=== PATIENT | male | born 1990 | race Caucasian/White ===

== ENCOUNTER 2016-12-25 03:51 | Inpatient (IN) | payer MEDICAID, OTHER ==
[~2016-12-25] VITALS: Ht 165.1 cm; Wt 90.2 kg
[2016-12-25 04:34] VITALS: TEMP 98.4
[2016-12-25] MEDS ORDERED: morphine 4 MG/ML VIAL IV STA ×2 (04:36→06:36)
[2016-12-25] MEDS ORDERED: ONDANSETRON 4 MG INJ IV STA (04:36)
[2016-12-25] MEDS ORDERED: SOD CHLORIDE 0.9% 1,000 ML IV STA ×2 (04:36→06:31)
[2016-12-25 05:13] LABS: ADD SCAN DIFF NO
[2016-12-25 05:20] LABS: BASOPHILS % 0.2 % (0.0-2.0); EOSINOPHILS # 0.9 10^3/ul (0.0-0.5); EOSINOPHILS % 6.9 % (0.0-7.0); HEMATOCRIT 44.4 % (42.0-52.0); HEMOGLOBIN 15.1 g/dl (14.0-18.0); LYMPHOCYTES # 1.5 10^3/ul (0.8-2.9); LYMPHOCYTES % 11.2 % (15.0-51.0); MEAN CORPUSCULAR HEMOGLOBIN 31.1 pg (29.0-33.0); MEAN CORPUSCULAR VOLUME 91.4 fl (82.0-101.0); MEAN PLATELET VOLUME 10.4 fl (7.4-10.4); MONOCYTE # 0.6 10^3/ul (0.3-0.9); MONOCYTES % 4.9 % (0.0-11.0); NEUTROPHIL # 10.1 10^3/ul (1.6-7.5); NEUTROPHILS % 76.3 % (39.0-77.0); PLATELET COUNT 299 10^3/UL (140-415); RED BLOOD COUNT 4.86 10^6/ul (4.70-6.10); WHITE BLOOD COUNT 13.2 10^3/ul (4.8-10.8)
[2016-12-25] MEDS ORDERED: LIDOCAINE/MYLANTA 40 ML BTL PO ONE (05:30)
[2016-12-25 05:32] LABS: ALBUMIN 4.6 g/dl (3.3-4.9)
[2016-12-25 05:33] LABS: POTASSIUM 3.7 mmol/L (3.5-5.1)
[2016-12-25 05:35] LABS: ALBUMIN/GLOBULIN RATIO 1.09; BILIRUBIN,INDIRECT 0.9 mg/dl (0-1.1); BILIRUBIN,TOTAL 0.9 mg/dl (0.2-1.3); CREATININE 1.06 mg/dl (0.61-1.24); TOTAL PROTEIN 8.8 g/dl (6.1-8.1)
--- NOTE | 2016-12-25 05:35 | ERD ---
ER Documentation Chief Complaint Date/Time DATE: 12/25/16 TIME: 05:34 Chief Complaint C/O EPIGASTRIC PAIN X1 1 DAY, WITH NAUSEA HPI This is a 26-year-old male comes with epigastric pain for 1 day with associated nausea. Pain is mild to moderate in intensity, burning in sensation and radiates to his back. Happened. Takeout food. No fevers no chills. Mild nausea. No vomiting. No other current complaints ROS All systems reviewed and are negative except as per history of present illness. Medications Home Meds No Active Prescriptions or Reported Meds Allergies Allergies: Coded Allergies: No Known Allergy (Unverified , 12/12/11) PMhx/Soc History of Surgery: No (NO MEDICAL OR SURGICAL HX) Anesthesia Reaction: No Hx Neurological Disorder: No Hx Respiratory Disorders: No Hx Cardiac Disorders: No Hx Psychiatric Problems: No Hx Miscellaneous Medical Probl: No Hx Alcohol Use: Yes Hx Substance Use: No Hx Tobacco Use: No Smoking Status: Never smoker Physical Exam Vitals Vital Signs Date Time Temp Pulse Resp B/P Pulse Ox O2 Delivery O2 Flow Rate FiO2 12/25/16 04:34 98.4 76 20 161/113 99 Room Air 12/25/16 04:13 98.5 80 20 173/108 98 Physical Exam Const: [] Head: Atraumatic Eyes: Normal Conjunctiva ENT: Normal External Ears, Nose and Mouth. Neck: Full range of motion..~ No meningismus. Resp: Clear to auscultation bilaterally Cardio: Regular rate and rhythm, no murmurs Abd: Soft, non tender, non distended. Normal bowel sounds Skin: No petechiae or rashes Back: No midline or flank tenderness Ext: No cyanosis, or edema Neur: Awake and alert Psych: Normal Mood and Affect Result Diagram: 12/25/16 0446 Results 24 hrs Laboratory Tests Test 12/25/16 04:46 White Blood Count 13.210^3/ul Red Blood Count 4.8610^6/ul Hemoglobin 15.1g/dl Hematocrit 44.4% Mean Corpuscular Volume 91.4fl Mean Corpuscular Hemoglobin 31.1pg Mean Corpuscular Hemoglobin Concent 34.0g/dl Red Cell Distribution Width 12.0% Platelet Count 11828^3/UL Mean Platelet Volume 10.4fl Neutrophils % 76.3% Lymphocytes % 11.2% Monocytes % 4.9% Eosinophils % 6.9% Basophils % 0.2% Nucleated Red Blood Cells % 0.0/100WBC Neutrophils # 10.110^3/ul Lymphocytes # 1.510^3/ul Monocytes # 0.610^3/ul Eosinophils # 0.910^3/ul Basophils # 0.010^3/ul Nucleated Red Blood Cells # 0.010^3/ul Current Medications Medications (Trade) Dose Ordered Sig/Betty Route PRN Reason Start Time Stop Time Status Last Admin Dose Admin Sodium Chloride (NS) 1,000 ml @ 1,000 mls/hr Q1H STAT IV 12/25/16 04:36 12/25/16 05:35 12/25/16 04:48 Morphine Sulfate (morphine) 4 mg ONCE STAT IV 12/25/16 04:36 12/25/16 04:40 DC 12/25/16 04:48 Ondansetron HCl (Zofran Inj) 4 mg ONCE STAT IV 12/25/16 04:36 12/25/16 04:40 DC 12/25/16 04:48 Miscellaneous Medication (Gi Cocktail (2)) 40 ml ONCE ONCE PO 12/25/16 05:30 12/25/16 05:31 DC 12/25/16 05:33 Procedures/MDM CT of abdomen pelvis is currently pending. Medical decision makin-year-old with acute abdominal pain. Bulges consistent with gastroenteritis. Patient was discharged home with Zofran and Bentyl pending CT scan results. Departure Diagnosis: Primary Impression: Abdominal pain Abdominal location: epigastric Qualified Code: R10.13 - Epigastric pain Condition: Stable VERONIKA TINSLEY Dec 25, 2016 05:35
[2016-12-25] MEDS ORDERED: RANI150T9 PO (05:39)
[2016-12-25] MEDS ORDERED: ONDA4TAB14 PO (05:39)
[2016-12-25] MEDS ORDERED: SOD CHLORIDE 0.9% 100 ML ONE (05:50)
[2016-12-25] MEDS ORDERED: IOHEXOL 300MG/ML 150 ML BTL ONE (05:50)
[2016-12-25 06:10] LABS: ADD UMIC NO; URINE BILIRUBIN (Dip) NEGATIVE (NEGATIVE); URINE BLOOD (Dip) NEGATIVE (NEGATIVE); URINE COLOR LT. YELLOW (YELLOW); URINE GLUCOSE (Dip) NEGATIVE (NEGATIVE); URINE KETONES (Dip) NEGATIVE (NEGATIVE); URINE LEUKOCYTE ESTERASE (Dip) NEGATIVE (NEGATIVE); URINE NITRITE (Dip) NEGATIVE (NEGATIVE); URINE TOTAL PROTEIN (Dip) NEGATIVE (NEGATIVE); URINE UROBILINOGEN (Dip) 0.2 E.U./dL (0.1-1.0)
--- NOTE | 2016-12-25 06:25 | RADRPT ---
PROCEDURE: CT ABDOMEN/PELVIS WITH CONTRAST CLINICAL INDICATION: 26-year-old male with abdominal pain. TECHNIQUE: The study was performed utilizing a GE [employer] VCT 64-slice CT scanner. Direct axia l sections were obtained through the abdomen and pelvis with the use of 100 cc of Omnipaque-300 francis onic intravenous contrast material. Sagittal and coronal reformations were obtained. One or more of the following dose reduction techniques were utilized: automated exposure control, adjustment of the mA and/or kV according to patient's size or use of iterative reconstruction technique. The images were reviewed on a PACS workstation. CTD/vol = 19.4 mGy; Total Exam DLP = 1285.0 mGy-cm. COMPARISON: None. FINDINGS: There is trace bibasilar subsegmental atelectasis. There is no evidence for significant pleural eff usion. The liver has a normal size and contour. There is diffuse decreased density throughout the liver consistent with fatty infiltration without focal areas of abnormal density or contrast enhance ment. No intrahepatic nor extrahepatic biliary ductal dilatation is seen. The gallbladder is without calcified stones however significant wall thickening. The pancreatic head and uncinate process diff usely edematous with peripancreatic inflammatory changes and mild free fluid consistent with acute p ancreatitis This spleen is identified and has a normal size without abnormal density or contrast enh ancement. The adrenal glands are unremarkable. The kidneys are functional bilaterally. There is a r ight lower pole renal cyst measuring approximately 10 x 10 x 10 mm. No hydroureteronephrosis nor nep hroureterolithiasis is evident. The urinary bladder contains urine. There is umbilical hernia with an opening of 12 x 12 mm containing omental fat. The duodenum is mildly dilated consistent with a s entinel loop. The appendix is visualized and is without edema or surrounding inflammatory reaction. The prostate is not enlarged. There is no significant pelvic free fluid. There are small bilateral inguinal hernias containing fat. The aortoiliac vessels are without aneurysmal dilatation. The osse ous structures are intact. IMPRESSION: 1. Diffuse fatty infiltration of the liver. 2. Acute pancreatitis predominantly involving the head and uncinate process. 3. Right lower pole renal cyst. 4. Umbilical hernia containing omental fat. 5. Small bilateral inguinal hernias containing fat. .Radu Montenegro MD, MD Date Time Electronically viewed and signed by .Radu Montenegro MD, MD on 12/25/2016 06:25 .M/
--- NOTE | 2016-12-25 06:55 | QN ---
Documentation Comment Patient was found to have an elevated lipase of over [address] scan which showed acute pancreatitis. The patient admits to drinking heavily this weekend and I believe the pancreatitis is likely related to alcohol use. Ultrasound has been ordered to rule out gallstones. I spoke with Dr. Leone from the panel team for admission to a medical surgical bed. RICHA VANG MD Dec 25, 2016 06:55
[2016-12-25] MEDS ORDERED: ONDANSETRON 4 MG INJ IV PRN ×2 (07:00→09:00)
[2016-12-25] MEDS ORDERED: ACETAMINOPHEN 325 MG TAB PO PRN (07:00)
[2016-12-25] MEDS ORDERED: AMPICILLIN/SULB 3 GM/NS (PMX) 100 ML IVPB ONE (07:00)
--- NOTE | 2016-12-25 07:52 | RADRPT ---
PROCEDURE: Right Upper Quadrant Ultrasound. CLINICAL INDICATION: upper abd pain TECHNIQUE: Multiple real-time images were acquired of the patient's right upper quadrant abdomen a nd retroperitoneum utilizing a high resolution transducer. COMPARISON: None FINDINGS: The liver measures 18.4 cm, and demonstrates diffusely increased echogenicity. The main portal vein is not visualized due to overlying bowel gas. There is no intrahepatic biliary ductal dilatation. Th e extrahepatic common bile duct measures 4 mm. The gallbladder is without stones, wall thickening, or pericholecystic fluid. The visualized pancreas is unremarkable. The right kidney measures 10.0 x 4.2 x 4.2 cm and demonstrates normal echotexture. There is no right renal calculus or hydronephrosis. The visualized abdominal aorta and IVC are grossly unremarkable. IMPRESSION: Hepatomegaly with severe fatty infiltration. No cholelithiasis or acute cholecystitis. Normal CBD. The main portal vein is not visualized due to overlying bowel gas. RPTAT: EE Physician Ethel Date Time Electronically viewed and signed by Physician Ethel on 12/25/2016 07:52 /
[2016-12-25] MEDS ORDERED: DEXTROSE 5%-0.45% NACL 1,000 ML IV SCH (08:44)
[2016-12-25 09:00] VITALS: BP 168/108; PULSE 88; RESP 16
[2016-12-25] MEDS ORDERED: NACL 0.9% 3 ML SYG IV SCH (09:00)
[2016-12-25] MEDS: morphine 2 MG INJ IV PRN ×3 (09:22→19:09)
[2016-12-25 12:07] VITALS: BP 154/97; PULSE 62
[2016-12-25 14:38] VITALS: Ht 165.1 cm; Wt 90.2 kg
[2016-12-25] MEDS ORDERED: ONDANSETRON (ODT) 4 MG TAB ODT PRN (15:00)
[2016-12-25] MEDS ORDERED: LORAZEPAM 2 MG INJ IV PRN (15:00)
[2016-12-25] MEDS ORDERED: RANITIDINE 150 MG TAB PO PRN (15:00)
--- NOTE | 2016-12-25 15:31 | HP ---
DATE OF ADMISSION: 12/25/2016 AUDITOR TAX: None. CHIEF COMPLAINT: Abdominal pain. HISTORY OF PRESENT ILLNESS: This is a pleasant 26-year-old gentleman with past medical history of a lcohol dependency who has been drinking since age 16, who has been through binge drinking this weeke . He usually drinks 3 big cans of beer per day, although this weekend he drank a little more than his usual. He woke up with a hangover this past Saturday and he continued to drink to get rid of the hangover. He started having abdominal discomfort on 12/24/2016 and he had decreased appetite; ther efore, he presented to [facility] Emergency Room where he was found to have a lipase of [address] of the abdomen and pelvis was positive for diffuse fatty infiltration of the liver, acute panc reatitis predominantly involving the head of the uncinate process, right lower lobe renal cysts, umb ilical hernia containing omental fat, small bilateral inguinal hernias containing fat. The patient was made n.p.o., IV fluids, pain medication, antiemetic medication and he has been admitted to medic al/surgery for further evaluation and treatment. At this time, the patient denies having any chest pain, shortness of breath. No nausea, vomiting, diarrhea. No headache, dizziness, lightheadedness. No change in visual acuity, diplopia, photophobia. Positive for minimal abdominal discomfort. No respiratory distress. No heat and cold intolerance. No neck pain, no restricted range of motion i n upper and lower extremities or any other discomfort. PAST MEDICAL AND SURGICAL HISTORY: History of alcoholism. MEDICATIONS: 1. Zofran. 2. Ranitidine. ALLERGIES: NO KNOWN DRUG ALLERGIES. FAMILY HISTORY: Noncontributory. SOCIAL HISTORY: History of alcoholism, 3 big cans of beer per day. No smoking, no illicit drugs. He lives at home with his and 2 of his daughters. REVIEW OF SYSTEMS: As above per HPI, otherwise 12 review of systems has been found to be negative. PHYSICAL EXAMINATION: VITAL SIGNS: Temperature 98.9, pulse 62, blood pressure 158/97, oxygen saturation 95% on room air. GENERAL APPEARANCE: The patient is lying in bed comfortably without acute distress. He is awake, a lert, oriented. He is able to answer my questions properly. EYES AND ENT: Conjunctivae and lids are normal. Pupils are normal. Extraocular normal. Hearing g rossly normal. Lips, teeth and gums are normal. Oral mucosa is moist. NECK: Supple. Trachea is midline. No lymphadenopathy. RESPIRATORY: Effort is normal. Clear to auscultation bilaterally. CARDIOVASCULAR: Normal S1, S2. Regular rhythm and rate. No murmur, no bruits, no edema. Peripher al pulses, radial pulses palpable. Capillary refill is normal. CHEST: Normal expansion of thorax during inspiration. GASTROINTESTINAL: Abdomen is soft, nontender, not distended. Bowel sounds present. No guarding, n o rebound. GENITOURINARY: Deferred. MUSCULOSKELETAL: Upper and lower extremities within normal limits. Full range of motion, strength 5/5 in both upper and lower extremities. NEUROLOGIC: Cranial nerves II through XII are grossly intact. PSYCHIATRIC: Normal judgment and insight. Alert and oriented x3. Mood and affect is normal. LABORATORY WORK AND IMAGING: WBC 13.3, hemoglobin 15.1, hematocrit 44.4, platelets 299. Sodium 140 , potassium 3.7, chloride 100, bicarbonate 26, BUN 13, creatinine 1.06, glucose 105, calcium 9. Tot al bilirubin 0.9, AST 61, ALT 97, alkaline phosphatase 108. Protein 8.8. Lipase 889. ASSESSMENT AND PLAN: 1. Acute alcoholic pancreatitis with recent binge drinking. The patient has been placed n.p.o., I V fluid with banana bag, Ativan and Librium. Education was provided 2. Fatty liver, likely secondary to history of alcoholism. The patient has been instructed to quit alcohol consumption. 3. For deep venous thrombosis prophylaxis, on sequential compression devices. 4. For gastrointestinal prophylaxis, on ranitidine. 5. We will continue to monitor the patient closely. Further recommendations, management and treatm ent as per clinical course. Dictated By: DINORAH FLOREZ/LAURA Conf#: [id number] DID#: [id number]
[2016-12-25 20:42] VITALS: BP 173/96; RESP 16
[2016-12-25] MEDS: hydrALAzine 20 MG INJ IV PRN (20:54)
[2016-12-25] MEDS: CHLORDIAZEPOXIDE 25 MG CAP PO SCH (20:55)
[2016-12-25] MEDS: KETOROLAC 15 MG INJ IV PRN (20:55)
[2016-12-25 22:21] VITALS: BP 133/85
[2016-12-26] MEDS: morphine 2 MG INJ IV PRN ×3 (00:12→19:57)
[2016-12-26] MEDS: KETOROLAC 15 MG INJ IV PRN ×3 (05:17→17:49)
[2016-12-26 05:25] LABS: ADD SCAN DIFF NO
[2016-12-26 05:29] LABS: BASOPHILS % 0.2 % (0.0-2.0); EOSINOPHILS # 0.5 10^3/ul (0.0-0.5); HEMATOCRIT 44.7 % (42.0-52.0); HEMOGLOBIN 14.9 g/dl (14.0-18.0); LYMPHOCYTES # 1.3 10^3/ul (0.8-2.9); LYMPHOCYTES % 11.2 % (15.0-51.0); MEAN CORPUSCULAR HEMOGLOBIN 30.3 pg (29.0-33.0); MEAN CORPUSCULAR HGB CONC 33.3 g/dl (32.0-37.0); MEAN CORPUSCULAR VOLUME 90.9 fl (82.0-101.0); MEAN PLATELET VOLUME 10.1 fl (7.4-10.4); MONOCYTE # 0.6 10^3/ul (0.3-0.9); MONOCYTES % 5.3 % (0.0-11.0); NEUTROPHIL # 8.9 10^3/ul (1.6-7.5); NEUTROPHILS % 78.7 % (39.0-77.0); PLATELET COUNT 271 10^3/UL (140-415); RED BLOOD COUNT 4.92 10^6/ul (4.70-6.10); RED CELL DISTRIBUTION WIDTH 12.1 % (11.5-14.5); WHITE BLOOD COUNT 11.3 10^3/ul (4.8-10.8)
[2016-12-26 06:02] LABS: ALBUMIN 4.2 g/dl (3.3-4.9)
[2016-12-26 06:03] LABS: POTASSIUM 3.7 mmol/L (3.5-5.1)
[2016-12-26 06:05] LABS: BILIRUBIN,INDIRECT 0.7 mg/dl (0-1.1); BILIRUBIN,TOTAL 0.7 mg/dl (0.2-1.3); CREATININE 0.93 mg/dl (0.61-1.24)
[2016-12-26 06:06] LABS: ALBUMIN/GLOBULIN RATIO 1.07; CALCIUM 8.8 mg/dl (8.4-10.2); PHOSPHORUS 3.3 mg/dl (2.5-4.9); TOTAL PROTEIN 8.1 g/dl (6.1-8.1)
[2016-12-26 06:07] LABS: CHOL/HDL RATIO 3.9 RATIO
[2016-12-26 07:50] VITALS: BP 151/84; RESP 16
[2016-12-26] MEDS: CHLORDIAZEPOXIDE 25 MG CAP PO SCH ×3 (08:40→20:00)
[2016-12-26] MEDS: MULTIVITAMINS 10 ML, THIAMINE 100 MG, FOLIC ACID 1 MG in SOD CHLORIDE 0.9% 1,000 ML IVPB SCH (08:40)
[2016-12-26 12:00] VITALS: BP 135/79
--- NOTE | 2016-12-26 15:10 | PN ---
Date/Time of Note Date/Time of Note DATE: 12/26/16 TIME: 15:06 Assessment/Plan VTE Prophylaxis VTE Prophylaxis Intervention: SCD's Lines/Catheters IV [facility] Saline Lock Urinary Cath still in place: No Assessment/Plan Chief Complaint/Hosp Course ASSESSMENT AND PLAN: 1. Acute alcoholic pancreatitis Continue n.p.o., IV fluid with banana bag, Ativan and Librium. Education was provided Consultation was recommended Follow-up lipase level 2. Fatty liver, likely secondary to history of alcoholism. The patient has been instructed to quit alcohol consumption. 3. For deep venous thrombosis prophylaxis, on sequential compression devices. 4. For gastrointestinal prophylaxis, on ranitidine. We will continue to monitor the patient closely. Further recommendations, management and treatment as per clinical course. Problems: Subjective 24 Hr Interval Summary Free Text/Dictation Patient denies of any chest pain or nausea vomiting No abdominal pain No shortness of breath N.p.o. Exam/Review of Systems Vital Signs Vitals Vital Signs Date Time Temp Pulse Resp B/P Pulse Ox O2 Delivery O2 Flow Rate FiO2 12/26/16 07:50 98.9 108 16 151/84 93 12/25/16 09:00 Room Air Intake and Output 12/25/16 12/25/16 12/26/16 15:00 23:00 07:00 Intake Total 700 ml Output Total 800 ml Balance -100 ml Exam General: The patient is well-developed, Not in acute distress. HEENT: Atraumatic, normocephalic. The pupils are equal and round . Neck: Supple with full range of motion. Chest: Normal expansion of the thorax during inspiration Lungs: Clear to auscultation bilaterally Heart: Normal S1-S2, Regular rhythm and rate. Abdomen: Soft , nontender, nondistended , bowel sounds are present. Extremities: Normal to inspection, no edema no cyanosis Neurologic: Normal mental status,The patient is awake, alert and oriented . Results Result Diagram: 12/26/16 0505 12/26/16 0505 Results 24 hrs Laboratory Tests Test 12/26/16 05:05 White Blood Count 11.3 H Red Blood Count 4.92 Hemoglobin 14.9 Hematocrit 44.7 Mean Corpuscular Volume 90.9 Mean Corpuscular Hemoglobin 30.3 Mean Corpuscular Hemoglobin Concent 33.3 Red Cell Distribution Width 12.1 Platelet Count 271 Mean Platelet Volume 10.1 Neutrophils % 78.7 H Lymphocytes % 11.2 L Monocytes % 5.3 Eosinophils % 4.0 Basophils % 0.2 Nucleated Red Blood Cells % 0.0 Neutrophils # 8.9 H Lymphocytes # 1.3 Monocytes # 0.6 Eosinophils # 0.5 Basophils # 0.0 Nucleated Red Blood Cells # 0.0 Sodium Level 137 Potassium Level 3.7 Chloride Level 100 Carbon Dioxide Level 25 Anion Gap 16 Blood Urea Nitrogen 9 Creatinine 0.93 Glucose Level 103 Calcium Level 8.8 Phosphorus Level 3.3 Magnesium Level 2.0 Total Bilirubin 0.7 Direct Bilirubin 0.00 Indirect Bilirubin 0.7 Aspartate Amino Transf (AST/SGOT) 45 Alanine Aminotransferase (ALT/SGPT) 76 H Alkaline Phosphatase 100 Total Protein 8.1 Albumin 4.2 Globulin 3.90 H Albumin/Globulin Ratio 1.07 Triglycerides Level 222 H Cholesterol Level 165 LDL Cholesterol, Calculated 79 HDL Cholesterol 42 Cholesterol/HDL Ratio 3.9 Lipase 2321 H Medications Medications Current Medications Ondansetron HCl (Zofran Inj) 4 mg Q6H PRN IV NAUSEA AND/OR VOMITING Last administered on 12/26/16 08:40; Admin Dose 4 MG; Start 12/25/16 at 09:00 Morphine Sulfate (morphine) 3 mg Q4H PRN IV pain Last administered on 00:12; Admin Dose 3 MG; Start 12/25/16 at 09:00 Ketorolac Tromethamine (Toradol) 15 mg Q6H PRN IV PAIN Last administered on 12:03; Admin Dose 15 MG; Start 12/25/16 at 09:00; Stop 12/28/16 at 08:59 Hydralazine HCl 10 mg 10 mg Q4H PRN IV ELEVATED BLOOD PRESSURE Last administered on 12/25/16 20:54; Admin Dose 10 MG; Start 12/25/16 at 11:30 Multivitamins/ Thiamine HCl/ Folic Acid/Sodium Chloride (Mvi Adult/ Vitamin B1/ Folic Acid/NS) 1,011.2 ml @ 125 mls/ hr DAILY@09 IVPB Last administered on 08:40; Admin Dose 100 MLS/HR; Start 12/26/16 at 09:00 Lorazepam (Ativan) 0.5 mg Q6H PRN IV AGITATION/ANXIETY; Start 12/25/16 at 15:00 Chlordiazepoxide (Librium) 25 mg TID PO Last administered on 12/26/16t 12:03; Admin Dose 25 MG; Start 12/25/16 at 21:00 Ondansetron HCl (Zofran Odt) 4 mg Q6H PRN ODT NAUSEA AND/OR VOMITING; Start at 15:00 Ranitidine HCl (Zantac) 150 mg BID PRN PO EPIGASTRIC PAIN; Start 12/25/16 at 15 :00 DINORAH SHEPARD MD Dec 26, 2016 15:10
[2016-12-26 21:35] VITALS: BP 146/93; RESP 18
[2016-12-27] MEDS: morphine 2 MG INJ IV PRN ×5 (00:01→21:15)
[2016-12-27] MEDS: KETOROLAC 15 MG INJ IV PRN ×4 (01:16→20:04)
[2016-12-27 05:50] LABS: ADD SCAN DIFF NO
[2016-12-27 05:58] LABS: BASOPHILS % 0.3 % (0.0-2.0); EOSINOPHILS # 0.7 10^3/ul (0.0-0.5); EOSINOPHILS % 7.2 % (0.0-7.0); HEMATOCRIT 42.4 % (42.0-52.0); LYMPHOCYTES % 20.1 % (15.0-51.0); MEAN CORPUSCULAR HEMOGLOBIN 30.6 pg (29.0-33.0); MEAN CORPUSCULAR VOLUME 92.8 fl (82.0-101.0); MEAN PLATELET VOLUME 10.2 fl (7.4-10.4); MONOCYTE # 0.6 10^3/ul (0.3-0.9); NEUTROPHIL # 6.4 10^3/ul (1.6-7.5); NEUTROPHILS % 65.8 % (39.0-77.0); PLATELET COUNT 245 10^3/UL (140-415); RED BLOOD COUNT 4.57 10^6/ul (4.70-6.10); WHITE BLOOD COUNT 9.7 10^3/ul (4.8-10.8)
[2016-12-27 06:13] LABS: ALBUMIN 4.1 g/dl (3.3-4.9); ALBUMIN/GLOBULIN RATIO 1.07; BILIRUBIN,INDIRECT 0.5 mg/dl (0-1.1); BILIRUBIN,TOTAL 0.5 mg/dl (0.2-1.3); CALCIUM 8.7 mg/dl (8.4-10.2); CREATININE 0.99 mg/dl (0.61-1.24); MAGNESIUM 2.3 mg/dl (1.7-2.5); POTASSIUM 3.7 mmol/L (3.5-5.1); TOTAL PROTEIN 7.9 g/dl (6.1-8.1)
[2016-12-27 08:23] VITALS: BP 147/90; RESP 18
[2016-12-27] MEDS: MULTIVITAMINS 10 ML, THIAMINE 100 MG, FOLIC ACID 1 MG in SOD CHLORIDE 0.9% 1,000 ML IVPB SCH (08:52)
[2016-12-27] MEDS: CHLORDIAZEPOXIDE 25 MG CAP PO SCH ×3 (08:52→20:04)
--- NOTE | 2016-12-27 13:51 | PN ---
Date/Time of Note Date/Time of Note DATE: 12/27/16 TIME: 13:50 Assessment/Plan VTE Prophylaxis VTE Prophylaxis Intervention: SCD's Lines/Catheters [facility] Saline Lock Urinary Cath still in place: No Assessment/Plan Chief Complaint/Hosp Course ASSESSMENT AND PLAN: 1. Acute alcoholic pancreatitis Continue n.p.o., IV fluid with banana bag, Ativan and Librium. Education was provided Consultation was recommended With improvement in lipase level, follow-up lipase level 2. Fatty liver, likely secondary to history of alcoholism. The patient has been instructed to quit alcohol consumption. 3. For deep venous thrombosis prophylaxis, on sequential compression devices. 4. For gastrointestinal prophylaxis, on ranitidine. We will continue to monitor the patient closely. Further recommendations, management and treatment as per clinical course. Problems: Subjective 24 Hr Interval Summary Free Text/Dictation Patient denies of any chest pain or shortness of breath Minimal abdominal discomfort, without any nausea vomiting Exam/Review of Systems Vital Signs Vitals Vital Signs Date Time Temp Pulse Resp B/P Pulse Ox O2 Delivery O2 Flow Rate FiO2 12/27/16 08:23 98.4 80 18 147/90 94 12/25/16 09:00 Room Air Intake and Output 12/26/16 12/26/16 12/27/16 15:00 23:00 07:00 Intake Total 1011.2 ml 0 ml Balance 1011.2 ml 0 ml Exam General: The patient is well-developed, Not in acute distress. HEENT: Atraumatic, normocephalic. The pupils are equal and round . Neck: Supple with full range of motion. Chest: Normal expansion of the thorax during inspiration Lungs: Clear to auscultation bilaterally Heart: Normal S1-S2, Regular rhythm and rate. Abdomen: Soft , nontender, nondistended , bowel sounds are present. Extremities: Normal to inspection, no edema no cyanosis Neurologic: Normal mental status,The patient is awake, alert and oriented . Results Result Diagram: 12/27/16 0515 12/27/16 0515 Results 24 hrs Laboratory Tests Test 12/27/16 05:15 White Blood Count 9.7 Red Blood Count 4.57 L Hemoglobin 14.0 Hematocrit 42.4 Mean Corpuscular Volume 92.8 Mean Corpuscular Hemoglobin 30.6 Mean Corpuscular Hemoglobin Concent 33.0 Red Cell Distribution Width 12.0 Platelet Count 245 Mean Platelet Volume 10.2 Neutrophils % 65.8 Lymphocytes % 20.1 Monocytes % 6.0 Eosinophils % 7.2 H Basophils % 0.3 Nucleated Red Blood Cells % 0.0 Neutrophils # 6.4 Lymphocytes # 2.0 Monocytes # 0.6 Eosinophils # 0.7 H Basophils # 0.0 Nucleated Red Blood Cells # 0.0 Sodium Level 137 Potassium Level 3.7 Chloride Level 103 Carbon Dioxide Level 24 Anion Gap 14 Blood Urea Nitrogen 11 Creatinine 0.99 Glucose Level 77 Calcium Level 8.7 Magnesium Level 2.3 Total Bilirubin 0.5 Direct Bilirubin 0.00 Indirect Bilirubin 0.5 Aspartate Amino Transf (AST/SGOT) 39 Alanine Aminotransferase (ALT/SGPT) 61 Alkaline Phosphatase 92 Total Protein 7.9 Albumin 4.1 Globulin 3.80 H Albumin/Globulin Ratio 1.07 Lipase 1169 H Medications Medications Current Medications Ondansetron HCl (Zofran Inj) 4 mg Q6H PRN IV NAUSEA AND/OR VOMITING Last administered on 12/26/16 08:40; Admin Dose 4 MG; Start 12/25/16 at 09:00 Morphine Sulfate (morphine) 3 mg Q4H PRN IV pain Last administered on 11:34; Admin Dose 3 MG; Start 12/25/16 at 09:00 Ketorolac Tromethamine (Toradol) 15 mg Q6H PRN IV PAIN Last administered on 07:42; Admin Dose 15 MG; Start 12/25/16 at 09:00; Stop 12/28/16 at 08:59 Hydralazine HCl 10 mg 10 mg Q4H PRN IV ELEVATED BLOOD PRESSURE Last administered on 12/25/16 20:54; Admin Dose 10 MG; Start 12/25/16 at 11:30 Multivitamins/ Thiamine HCl/ Folic Acid/Sodium Chloride (Mvi Adult/ Vitamin B1/ Folic Acid/NS) 1,011.2 ml @ 125 mls/ hr DAILY@09 IVPB Last administered on 08:52; Admin Dose 125 MLS/HR; Start 12/26/16 at 09:00 Lorazepam (Ativan) 0.5 mg Q6H PRN IV AGITATION/ANXIETY; Start 12/25/16 at 15:00 Chlordiazepoxide (Librium) 25 mg TID PO Last administered on 12/27/16 13:24; Admin Dose 25 MG; Start 12/25/16 at 21:00 Ondansetron HCl (Zofran Odt) 4 mg Q6H PRN ODT NAUSEA AND/OR VOMITING; Start at 15:00 Ranitidine HCl (Zantac) 150 mg BID PRN PO EPIGASTRIC PAIN; Start 12/25/16 at 15 :00 DINORAH SHEPARD MD Dec 27, 2016 13:51
[2016-12-27 20:59] VITALS: BP 135/99; RESP 18
[2016-12-28] MEDS: morphine 2 MG INJ IV PRN ×2 (01:25→12:30)
[2016-12-28 06:43] LABS: ADD SCAN DIFF NO
[2016-12-28 06:50] LABS: BASOPHILS % 0.4 % (0.0-2.0); EOSINOPHILS # 0.9 10^3/ul (0.0-0.5); EOSINOPHILS % 9.9 % (0.0-7.0); HEMATOCRIT 42.1 % (42.0-52.0); HEMOGLOBIN 14.2 g/dl (14.0-18.0); LYMPHOCYTES # 1.4 10^3/ul (0.8-2.9); MEAN CORPUSCULAR HGB CONC 33.7 g/dl (32.0-37.0); MEAN CORPUSCULAR VOLUME 91.9 fl (82.0-101.0); MEAN PLATELET VOLUME 10.1 fl (7.4-10.4); MONOCYTE # 0.5 10^3/ul (0.3-0.9); MONOCYTES % 5.8 % (0.0-11.0); NEUTROPHIL # 6.2 10^3/ul (1.6-7.5); NEUTROPHILS % 68.4 % (39.0-77.0); PLATELET COUNT 255 10^3/UL (140-415); RED BLOOD COUNT 4.58 10^6/ul (4.70-6.10); RED CELL DISTRIBUTION WIDTH 11.8 % (11.5-14.5); WHITE BLOOD COUNT 9.1 10^3/ul (4.8-10.8)
[2016-12-28 07:23] LABS: ALBUMIN 4.2 g/dl (3.3-4.9); ALBUMIN/GLOBULIN RATIO 1.05; BILIRUBIN,INDIRECT 0.4 mg/dl (0-1.1); BILIRUBIN,TOTAL 0.4 mg/dl (0.2-1.3); CALCIUM 8.8 mg/dl (8.4-10.2); CREATININE 0.96 mg/dl (0.61-1.24); MAGNESIUM 2.1 mg/dl (1.7-2.5); POTASSIUM 4.1 mmol/L (3.5-5.1); TOTAL PROTEIN 8.2 g/dl (6.1-8.1)
[2016-12-28 07:25] VITALS: BP 141/103; PULSE 102; RESP 24
[2016-12-28] MEDS: KETOROLAC 15 MG INJ IV PRN (08:24)
[2016-12-28] MEDS: CHLORDIAZEPOXIDE 25 MG CAP PO SCH ×3 (08:24→20:34)
[2016-12-28] MEDS: MULTIVITAMINS 10 ML, THIAMINE 100 MG, FOLIC ACID 1 MG in SOD CHLORIDE 0.9% 1,000 ML IVPB SCH (08:25)
[2016-12-28 09:00] VITALS: BP 141/103; RESP 24
--- NOTE | 2016-12-28 10:48 | PDOCDIS ---
Discharge Instructions CONDITION Patient Condition: Good HOME CARE INSTRUCTIONS: Special Diet: Full liquid and advance to soft x 3-4 days ACTIVITY: Activity Restrictions: No Restrictions FOLLOW UP/APPOINTMENTS Appointments Follow-up with primary care physician as outpatient Follow up with general surgery Dr. Ruben Montalvo as outpatient ( please provide patient with his office number ) DINORAH SHEPARD MD Dec 28, 2016 10:48
[2016-12-28] MEDS ORDERED: THIA100T10 PO (10:51)
[2016-12-28] MEDS ORDERED: FOL8 PO (10:51)
[2016-12-28] MEDS ORDERED: MULT-761 PO (10:51)
[2016-12-28] MEDS ORDERED: CHLO25CA9 PO (10:51)
--- NOTE | 2016-12-28 12:44 | DS ---
DATE OF ADMISSION: 12/25/2016 DATE OF DISCHARGE: 12/28/2016 CONSULTANTS: None. DIAGNOSES 1. Acute alcoholic pancreatitis. Patient was made n.p.o. Banana bag, Ativan, Librium. Education w as provided. Lipase has improved significantly, except fatty liver, likely secondary to alcoholism. 2. History of alcoholism. Education was provided. Patient has been instructed to refrain from con sumption of any alcoholic drinks. MEDICATIONS: 1. Librium. 2. Folic acid. 3. Multivitamin. 4. Thiamine. 5. Zofran. 6. Ranitidine. ALLERGIES: NO KNOWN ALLERGIES. LABORATORY: WBC 9.1, hemoglobin 14.2, hematocrit 42.1, platelets 255. Sodium 136, potassium 4.1, c hloride 104, bicarbonate 19, BUN 12, creatinine 0.96, glucose 65, calcium 8.8. LFTs within normal l imits. Lipase 589. HOSPITAL COURSE: This is a pleasant 26-year-old gentleman with history of alcohol dependence, has b een drinking since the age of 16, has been having binge drinking last weekend. He drinks 3 cans of beer per day and throughout the weekend, he had more than usual and he woke up with a hangover on Avendaño nday and he continued to drink to get rid of the hangover. The patient started having abdominal dis comfort on 12/24/2016 ad had decreased appetite, and therefore presented to [facility] room. Lipase was found at 889. CT abdomen and pelvis was positive for diffuse fatty infiltra tion of liver, acute pancreatitis, predominantly involving the head of the uncinate process, umbilic al hernia containing omental fat and small bilateral inguinal hernia containing fat. Patient was ma de n.p.o., IV fluid, was started on banana bag admitted to med/surg. The patient was educated regar ding his alcoholic habit and at this time he understands the risk that may lead to worsening of his fatty liver, worsening of the pancreas status and cirrhosis and possible . The patient was doni vanessa on Ativan, Librium, was continued on banana bag and IV fluid. Essentially, the patient's lipase started to improve significantly. He was started on full liquid diet, which he has been tolerating . He has been adamant that he wants to be discharged home secondary to his daughter's birthday pantera rrow and wants to surprise her in the morning. This morning, patient denies any chest pain, shortne ss of breath, nausea, vomiting, diarrhea. No abdominal pain. Has been able to ambulate without dif ficulty. Again today I had a long discussion with him regarding his alcohol habit and he has to rajiv t alcohol consumption and he has agreed with that recommendation. I also had a talk with his sarah t the bedside regarding this matter. At this time, patient is medically stable to be discharged marilee e with a close followup with primary care physician and also I have provided him with phone number o f Dr. Ruben Montalvo regarding the CT finding of the umbilical hernia, bilateral inguinal hernia, thi s was not incarcerated and are soft, although he will need to eventually follow up with general anne geon as outpatient for elective hernia repair. CONDITION AT TIME OF DISCHARGE: Stable. Dictated By: DINORAH FLOREZ/NTS Conf#: [id number] DID#: [id number]
[2016-12-28] MEDS: hydrALAzine 20 MG INJ IV PRN (20:31)
== END 2016-12-28 21:40 | disposition home or self-care (01) | DRG 440 ==
LOC: E/R 03:51 → PP2 07:15
PROVIDERS: ADMIT Internal Medicine; ATTEND Internal Medicine
DX: K85.20 Alcohol induced acute pancreatitis without necrosis or infection (principal); K70.0 Alcoholic fatty liver; I10 Essential (primary) hypertension; F10.20 Alcohol dependence, uncomplicated
CPT/HCPCS: 74177; 76705; 80053; 80061; 81003; 83690; 83735; 84100; 85025; J0295; J0360; J1885; J2270; J2405; J3411; J7030; J7042; Q9967

== ENCOUNTER 2017-01-23 09:55 | Outpatient (CLI) | payer MEDICAID ==
[~2017-01-23] VITALS: Ht 165.1 cm; Wt 84.5 kg
[~2017-01-23 09:55] MED LIST: CHLO25CA9 PO; FOL8 PO; MULT-761 PO; ONDA4TAB14 PO; RANI150T9 PO; THIA100T10 PO
[2017-01-23 10:08] VITALS: BP 125/83; PULSE 75; RESP 16; Ht 165.1 cm; Wt 84.5 kg
--- NOTE | 2017-01-24 16:48 | CONS ---
[facility] INITIAL OUTPATIENT CONSULTATION NOTE DATE OF CONSULTATION: 01/23/2017 PLACE OF SERVICE: [facility]. ASSESSMENT AND PLAN: A very pleasant 26-year-old young gentleman with some comorbidities, including a BMI of 31, as well as heavy alcohol abuse, presenting with acute pancreatitis recently in December of 2016 to [facility], which is likely related to his alcohol abuse. I do not appreciate significant stone disease within the gallbladder and even though normally we would recommend a laparoscopic cholecystectomy in this setting, I would like the patient to have a few changes in his lifestyle prior to approaching that point, given lack of any obvious of biliary stone disease. For the most part, the patient needs to lead a much healthier lifestyle, with a decrease of BMI to below 25. I also recommended that he abstain from alcohol abuse and to have consistent exercise in his life. He also can potentially benefit from an elective hernia repair, which could potentially be done without mesh, given the small size of it, at which point we could also consider a laparoscopic cholecystectomy to be combined with it if there is a reasonable low chance that a mesh repair would be needed. His bilateral inguinal hernias are asymptomatic and essentially contain fat within the cord, without any obvious defect in the wall, and do not require any surgical attention. I have reviewed all this with the patient and answered all of his questions to the best of my ability. He appeared to understand and agreed with the plan. With above assessment, I recommended the followin. Abstain from alcohol. 2. Change lifestyle to decrease caloric intake, make better choices for food intake, and to include consistent daily exercise in the patient's daily routine , with the goal of bringing his BMI to below 25. 3. Observe the umbilical hernia for now, but may potentially benefit from an elective repair in the near future. 4. If the patient has surgical intervention, this should potentially be repair of his umbilical hernia at the end of a laparoscopic cholecystectomy. Thank you again for allowing us to participate in the care of this very pleasant gentleman, and I am certain, his wonderful family. If there are any questions, please feel free to contact me at [phone]. UPDATED CLINICAL SUMMARY: A very pleasant 26-year-old gentleman with comorbidities including a BMI of 31, as well as alcohol dependency with some abuse since age 16, who was recently admitted for pancreatitis to [facility] in December of 2016 and discharged without further intervention. COMORBIDITIES: 1. BMI of 31. 2. Alcohol dependency since age 16, drinking on a daily basis up 3 or 4 large cans of beer a day and binge drinking over the weekend. 3. History of pancreatitis, with admission to hospital in December of 2016 to [facility]. 4. Fatty liver disease, based on CT and ultrasound December 2016. 5. Right lower pole renal cyst. 6. Umbilical hernia containing omental fat. 7. Small bilateral inguinal hernias containing fat. HISTORY OF PRESENT ILLNESS: The patient is a very pleasant 26-year-old gentleman with the above-mentioned comorbidities who we were kindly asked to consult regarding management of his pancreatitis in the setting of no obvious cholelithiasis, but in the setting of alcohol abuse. The patient reports feeling much better since discharge. He has not had episodes of pancreatitis in the past. He also does not have any history of biliary disease that he knows of. He had an ultrasound done of the right upper quadrant on 12/25/2016 that showed hepatomegaly with severe fatty infiltration, but no cholelithiasis or acute cholecystitis, and a normal common bile duct. He also had a CT scan of abdomen and pelvis on 12/25/2016 that again showed diffuse fatty infiltration of the liver and evidence for acute pancreatitis, predominantly involving the head and the uncinate process; a right lower pole renal cyst and an umbilical hernia containing omental fat, with small bilateral inguinal hernias containing fat. The patient otherwise does not have any other major complaints, including no nausea or vomiting. No difficulty with eating food or differentiating between types of food that he eats, and no other major complaints. ALLERGIES: NO KNOWN DRUG ALLERGIES. HOME MEDICATIONS: Include: 1. Folic acid. 2. Multivitamin. 3. Zantac. 4. Thiamine. SOCIAL HISTORY: The patient lives with his family and has 2 daughters. He works as a bilingual medical assistant. He does not report any smoking or intravenous drug use. He recently decreased his alcohol intake. FAMILY HISTORY: No mention of major medical, surgical or oncologic problems in the family, other than diabetes. REVIEW OF SYSTEMS: Other than the above-mentioned, there are no other pertinent positives or pertinent negatives in a complete 14-point review of systems. PHYSICAL EXAMINATION: GENERAL: The patient appears to be a very pleasant gentleman of descent, appearing his stated age, sitting in a chair comfortably and in no acute distress. BMI is 31. VITAL SIGNS: Blood pressure 125/83, temperature 98.2, pulse 75, respiratory rate 16, pulse oximetry 95% on room air. HEENT: Normocephalic and atraumatic. Extraocular muscles and hearing are grossly intact bilaterally and symmetrically. Sclerae are nonicteric. Oral cavity is clear; oral mucosa appeared to be pink and moist. Dentition: fair. NECK: Supple. There is no lymphadenopathy or JVD. There is no submental, submandibular or supraclavicular lymphadenopathy. CHEST: Rises symmetrically with each breath; patient is breathing comfortably. There are no audible wheezes, rales or rhonchi on the gross exam. HEART: Pulse is regular and palpable on the right wrist. Capillary refill was normal. Carotid pulses are palpable bilaterally and symmetrically in the neck. EXTREMITIES: Lower extremities contain no pitting edema around the ankles bilaterally and symmetrically. ABDOMEN: Abdomen is soft, nontender and nondistended. There are no peritoneal signs or guarding. No evidence of ascites, organomegaly, caput medusae, engorged subcutaneous veins, or other abnormalities. SKIN: Appears to be pink and feels warm to touch. NEUROLOGIC: Awake, alert, and follows commands appropriately. LABORATORY VALUES: Most recent values are from his recent admission to [facility] in December that showed a platelet count of 255 and otherwise normal-appearing labs. IMAGING: As above. Note that I personally reviewed all the available and pertinent images and I agree in general with their overall reported findings. Dictated By: CHRISTEN HARRISON/LAURA Conf#: [id number] DID#: [id number]
== END 2017-01-23 15:55 | disposition home or self-care (01) ==
LOC: HPC 09:55
PROVIDERS: ATTEND Transplant Surgery
DX: K85.90 Acute pancreatitis without necrosis or infection, unspecified (principal); K76.0 Fatty (change of) liver, not elsewhere classified; F10.10 Alcohol abuse, uncomplicated; N28.1 Cyst of kidney, acquired; K42.9 Umbilical hernia without obstruction or gangrene; K40.90 Unilateral inguinal hernia, without obstruction or gangrene, not specified as recurrent
CPT/HCPCS: G0463